=== PATIENT | male | born 2005 | race Caucasian/White ===

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

== ENCOUNTER 2023-07-02 15:47 | Emergency (ER) | payer OTHER, SELFPAY ==
--- NOTE | 2023-07-02 15:50 | XRR_ITS ---
PROCEDURE INFORMATION: Exam: XR Right Finger(s) Exam date and time: 07/02/2023 5:09 PM Age: 17 years old Clinical indication: Injury or trauma; Other: Not specified; Blunt trauma (contusions or hematomas); Right; Middle finger TECHNIQUE: Imaging protocol: Radiologic exam of the right fingers. Views: Minimum 2 views. COMPARISON: CR XR hand RT min 3V* [id number] 06/26/2023 11:50 AM FINDINGS: Bones/joints: There is nondisplaced comminuted fracture of the middle finger distal phalanx tuft. Mild swelling of the surrounding soft tissues is present. No dislocation. Soft tissues: See Bones/joints finding. XR/XR finger RT min 2V [id number] IMPRESSION: Nondisplaced comminuted fracture of the middle finger distal phalanx tuft.
[2023-07-02 15:53] VITALS: BP 150/90; PULSE 80; RESP 16; TEMP 36.9; O2SAT 96; BMI 41.3
--- NOTE | 2023-07-02 16:07 | W.ED.UPPEXIN ---
HPI - Extremity Injury (Upper) General: Chief Complaint: Extremity Injury, Upper Stated Complaint: rt hand inj (work comp) Time Seen by Provider: 07/02/23 15:51 Source: patient Mode of arrival: ambulatory Limitations: no limitations History of Present Illness: Patient is a 17-year-old male who presents to the emergency department for evaluation of a right hand injury. Patient states on 06/26 he injured his right hand at work by accidentally smashing it. He states he mainly injured his right index and middle fingers. He was subsequently seen at [facility] urgent care and had right hand x-rays performed. Patient states he was told that he had multiple fractures. He states his fingers were not splinted. He states they were going to have him follow-up with orthopedics but he has never heard anything further on this. They later received a call that the radiology over read was normal and that he does not have fractures. Patient states he has not followed up with Worker's Comp yet but that his work wanted him to come to the emergency department for a second opinion and to figure out what is going on . Patient continues to have pain. He feels like the swelling is significantly improved. He initially sustained abrasions/lacerations that were not repaired but seem to be healing okay. complaint: injury to: right and finger Onset (ago): day(s) Other Extremity Injury: Right: fingers Other injuries: none Place: work Severity: moderate Relieving factors: immobilization Exacerbating factors: movement of extremity Context: direct blow Associated symptoms: Reports no associated symptoms; Denies weakness in extremities Review of Systems Musc: Reports: extremity pain (R index/middle fingers), extremity swelling and limited range of motion; Denies: joint pain, joint swelling, joint redness or joint warmth Neuro: Denies: numbness in extremities, weakness in extremities or sensory changes PFSH ED PFSH: Medical History Asthma No pertinent past medical history Family History Grandmother Hypertension Grandfather Hypertension Social History Smoking and tobacco/nicotine status: never used tobacco/nicotine Second hand smoke exposure: No Alcohol intake: current Alcohol intake frequency: holidays/special occasions only Substance/Drug Use: never Physical Exam Const: COMMON NORMALS: no acute distress, no limitations, alert and well nourished Extremity: COMMON NORMALS: capillary refill normal GENERAL: Yes normal exam except as noted RIGHT UPPER EXTREMITY: Yes hand & digits Right hand and digits: Yes neurovascular exam (normal) OTHER: patient has pain throughout R index/middle fingers worse with palpation and movement; there is slight deformity near distal aspect of middle finger; he has healing lacerations/abrasions to medial/lateral surfaces; there is no diffuse edema, erythema, warmth, discharge, or concerns for infectious tenosynovitis at this time Neuro: COMMON NORMALS: moves all extremities, no focal motor deficits and no sensory deficits noted SENSORIUM/ORIENTATION: Yes alert Course Vital Signs: Vital signs: Vital Signs Temperature 98.5 F 07/02/23 15:53 Pulse Rate 80 07/02/23 15:53 Respiratory Rate 16 07/02/23 15:53 Blood Pressure 150/90 07/02/23 15:53 Pulse Oximetry 96 07/02/23 15:53 Oxygen Delivery Me thod Room Air 07/02/23 15:53 MDM - Extremity Injury (Upper) Medical Decision Making XR today obtained and personal interpretation shows a fracture to the distal phalanx of his right middle finger. No obvious other fractures were identified. Patient will be placed on antibiotics as he does have open wounds to the finger. No evidence for active infection or infectious tenosynovitis at this time but will be placed for prophylactic precautions. Finger will be splinted and he will follow up with orthopedics. Return to ED precautions given. Medical Records I reviewed the patient's medical records. XR interpretation done by ED provider, pending radiology final review Discharge Plan Discharge Patient Disposition: Home Clinical Impression: Closed fracture of distal phalanx of middle finger Qualifiers: Encounter type: initial encounter Fracture alignment: nondisplaced Laterality: right Qualified Code(s): S62.662A - Nondisplaced fracture of distal phalanx of right middle finger, initial encounter for closed fracture Condition: Stable Prescriptions: New cephalexin 500 mg capsule 500 mg PO Q6H 7 Days Qty: 28 0RF No Action budesonide-formoterol [Symbicort] 80-4.5 mcg/actuation HFA aerosol inhaler 2 puff inhalation BID albuterol sulfate 1.25 mg/3 mL solution for nebulization 1.25 mg inhalation QID PRN Discharge Orders: Discharge ED (Routine); Ordered 07/02/23 Ordered By: Marium Hansen Referrals: Claudio Cantu MD [Primary Care Provider] - Activity Restrictions/Additional Instructions: As we discussed your x-rays today showed a fracture to the distal phalanx of your right middle finger. You have been placed in a finger splint. I will go ahead and place a referral to get you set up with orthopedics. You need to continue to speak to your administration at work to continue the Worker's Comp. process. I have sent a prescription for antibiotics to [facility] in [place]. Coding Level of Care Code ED [employer] Training Instructor for Jackie Khanna
[2023-07-02] MEDS: tetanus-dipt-pertussis 0.5 mL SDV IM (16:32)
--- NOTE | 2023-07-02 16:35 | DCPLANNER ---
Message sent to Ortho for follow up Distal phalanx finger Fx
[2023-07-02 16:37] VITALS: BP 150/90; PULSE 80; RESP 16; TEMP 36.9; O2SAT 96
== END 2023-07-02 16:38 | disposition home or self-care (01) ==
PROVIDERS: Emergency Provider Physician Assistant; PCP Family Medicine
DX: S62.662A Nondisplaced fracture of distal phalanx of right middle finger, initial encounter for closed fracture (principal); W23.0XXA Caught, crushed, jammed, or pinched between moving objects, initial encounter; Y99.0 Civilian activity done for income or pay; Z23 Encounter for immunization
CPT/HCPCS: 73140; 90471; 90715; 99283

== ENCOUNTER → 2023-07-16 11:12 | Outpatient (BNVA) | payer OTHER, SELFPAY | PROVIDERS: PCP Family Medicine; Referring Provider Physician Assistant; Visit Provider Nurse Practitioner | DX: S62.632A Displaced fracture of distal phalanx of right middle finger, initial encounter for closed fracture; W23.0XXA Caught, crushed, jammed, or pinched between moving objects, initial encounter; Y99.0 Civilian activity done for income or pay | CPT/HCPCS: 73130 ==

== ENCOUNTER 2023-07-16 12:11 | Outpatient (CLI) | payer OTHER, SELFPAY | END 2023-07-16 12:12 | disposition home or self-care (01) | LOC: SPT 12:12 | PROVIDERS: PCP Family Medicine; Visit Provider Nurse Practitioner | DX: Z46.89 Encounter for fitting and adjustment of other specified devices (principal); S62.91XD Unspecified fracture of right hand, subsequent encounter for fracture with routine healing; X58.XXXD Exposure to other specified factors, subsequent encounter | CPT/HCPCS: 97760; L3807 ==

== ENCOUNTER → 2023-08-12 11:00 | Outpatient (BNVA) | payer OTHER, SELFPAY | PROVIDERS: PCP Family Medicine; Visit Provider Nurse Practitioner | DX: S62.632D Displaced fracture of distal phalanx of right middle finger, subsequent encounter for fracture with routine healing; S67.21XD Crushing injury of right hand, subsequent encounter; X58.XXXD Exposure to other specified factors, subsequent encounter; Y99.0 Civilian activity done for income or pay | CPT/HCPCS: 73130 ==

== ENCOUNTER → 2023-09-11 09:53 | Outpatient (BNVA) | payer OTHER, SELFPAY | PROVIDERS: PCP Family Medicine; Visit Provider Nurse Practitioner | DX: S67.21XD Crushing injury of right hand, subsequent encounter; S62.632D Displaced fracture of distal phalanx of right middle finger, subsequent encounter for fracture with routine healing; X58.XXXD Exposure to other specified factors, subsequent encounter; Y99.0 Civilian activity done for income or pay | CPT/HCPCS: 73130 ==